=== PATIENT | female | born 1975 | race Caucasian/White ===

== ENCOUNTER 2020-08-17 13:29 | Outpatient (REF) | payer OTHER, SELFPAY | END 2020-08-17 13:30 | disposition home or self-care (01) | LOC: HO.LAB 13:29 | PROVIDERS: PCP Pediatrics; Visit Provider Internal Medicine | DX: Z20.828 Contact with and (suspected) exposure to other viral communicable diseases (principal) | CPT/HCPCS: C9803; U0003 ==

== ENCOUNTER 2024-01-17 07:33 | Emergency (ER) | payer OTHER, SELFPAY ==
--- NOTE | ~2024-01-17 | XR_ITS ---
EXAMINATION: XR CHEST CLINICAL INFORMATION: Chest tightness COMPARISON: None available. TECHNIQUE: 2 views of the chest were obtained. FINDINGS: No significant abnormality is noted involving the heart, lungs, mediastinum, bony thorax or soft tissues. Cholecystectomy clips. XR/XR chest 2V IMPRESSION: No acute cardiopulmonary disease.
[2024-01-17 07:41] VITALS: BP 138/98; PULSE 99; RESP 19; TEMP 36.6; O2SAT 99; BMI 28.2
--- NOTE | 2024-01-17 07:45 | ECG_ITS ---
Test Reason : CP Blood Pressure : / mmHG Vent. Rate : 095 BPM Atrial Rate : 095 BPM P-R Int : 134 ms QRS Dur : 080 ms QT Int : 370 ms P-R-T Axes : 055 -01 038 degrees QTc Int : 464 ms Normal sinus rhythm with sinus arrhythmia Possible Left atrial enlargement Nonspecific ST and T wave abnormality Borderline ECG No previous ECGs available Referred By: Generic ED Physician Electronically Signed By:CALDERON GONZALES
[2024-01-17 08:16] LABS: MANUAL DIFF FLAG NO
[2024-01-17 08:18] LABS: Basophils Percent Auto 0.4 % (0-2); Eosinophils Absolute Auto 0.1 X10*3/uL (0.0-0.4); Eosinophils Percent Auto 1.2 % (0-4); Hematocrit 41.6 % (37.0-47.0); Hemoglobin 13.9 g/dl (12.0-16.0); Imm Gran Abs Auto 0.03 X10*3/uL (0.00-0.03); Imm Gran Pct Auto 0.3 % (0.0-0.4); Lymphocytes Absolute Auto 1.9 X10*3/uL (1.2-4.9); Lymphocytes Percent Auto 19.6 % (20-40); Mean Corpuscular HGB Conc 33.4 g/dl (31.0-35.0); Mean Corpuscular Hemoglobin 28.9 pg (27.0-33.0); Mean Corpuscular Volume 86.5 fL (80.0-98.0); Mean Platelet Volume 11.5 fL (9.4-12.3); Monocytes Absolute Auto 0.6 X10*3/uL (0.1-1.2); Monocytes Percent Auto 6.1 % (2-11); Neutrophils Absolute Auto 7.1 x10*3/uL (2.0-8.3); Neutrophils Percent Auto 72.4 % (45-73); Platelet Count 290 X10*3/uL (160-400); Red Blood Count 4.81 X10*6/uL (4.20-5.50); Red Cell Distribution Width 12.7 % (11.0-16.0); White Blood Count 9.9 X10*3/uL (4.8-10.8)
[2024-01-17 08:19] LABS: Appearance Urine Cloudy; Color Urine Yellow; Glucose Urine UA Negative (Negative); Leukocyte Esterase Urine Trace (Negative); Nitrite Urine Negative (Negative); Specific Gravity - Urine 1.025 (1.005-1.025); UMIC TRIGGER UACC YES; Urine Blood Negative (Negative); Urine Ketones Negative (Negative); Urine Protein Negative (Neg-Trace)
--- NOTE | 2024-01-17 08:30 | ED.GENADULT ---
HPI - General Adult General Chief complaint: General Medical Stated complaint: lightheades,blurred vison ,rapid heart rate tightn Time Seen by Provider: 01/17/24 08:29 Source: patient Mode of arrival: ambulatory Limitations: no limitations History of Present Illness HPI narrative: 48 yo female with no known medical history presents to the er with complaints of feeling lightheaded, blurry vision described as feel like the corners of my vision are black since yesterday. This is noticed at rest and not worsened with movement or exertion or position changes. She had some nausea with this yesterday. Last evening laying in bed and had palpitations described as racing heart rate. Fell asleep and woke this morning with chest tightness at 6 am while in bed. Not worsened with exertion. No associated vomiting, SOB, cough, fevers, chills, diaphoresis, leg swelling or pain. No recent travel or sick contact. Related Data Allergies Allergy/AdvReac Type Severity Reaction Status Date / Time cephalexin [From KEFLEX] Allergy Unknown HIVES Verified 01/17/24 07:45 metoclopramide [From Reglan] Allergy Unknown Verified 01/17/24 07:47 Review of Systems Review of Systems: Yes all other systems are reviewed and are negative Constitutional: Constitutional: Reports no additional constitutional complaints, Denies body ache(s), Denies chills, Denies fever(s), Denies headache(s) and Denies weakness Eyes: Eyes: Reports no additional eye complaints, Reports blurry vision and Denies change in vision ENT: Reports system reviewed and no additional complaints, except as documented, Reports dizziness, Denies headache(s), Denies nasal congestion, Denies nasal discharge and Denies neck pain Cardiovascular: Cardiovascular: Reports no additional cardiovascular complaints, Reports chest pain, Denies leg edema and Denies dyspnea Respiratory: Respiratory: Reports no additional respiratory complaints, Denies cough and Denies dyspnea Gastrointestinal: Gastrointestinal: Reports no additional gastrointestinal complaints, Denies abdominal pain, Denies diarrhea, Reports nausea and Denies vomiting Genitourinary: Genitourinary: Reports no additional female genitourinary complaints and Denies urinary incontinence Musculoskeletal: Musculoskeletal: Reports no additional musculoskeletal complaints, Denies back pain, Denies arthralgias, Denies joint swelling, Denies neck pain, Denies numbness and Denies tingling Integumentary/Breasts: Skin/Breast: Reports system reviewed and no additional complaints, except as docu and Denies rash Neurologic: Reports system reviewed and no additional complaints, except as documented, Denies Abnormal speech present, Reports dizziness, Denies headache(s), Denies numbness, Denies tingling and Denies weakness PMFSH Past Medical History Attestation statement: The following information was validated with the patient. Source: old records reviewed and nursing notes reviewed Social History Social History Smoked in Last 30 Days: No Use of substances other than those prescribed or required for medical reasons: No Advance Directives: No Advance Directives Information Provided: Yes Physical Exam ED Vital Signs: Vital Signs - 24 hr 01/17/24 07:41 01/17/24 08:39 01/17/24 08:45 Temperature 98 F Pulse Rate 99 90 91 Respiratory Rate 19 Blood Pressure 138/98 H 102/73 119/79 Pulse Oximetry 99 Oxygen Delivery Method Room Air 01/17/24 08:51 01/17/24 11:00 Temperature Pulse Rate 99 82 Respiratory Rate 12 Blood Pressure 109/82 109/79 Pulse Oximetry 100 Oxygen Delivery Method Room Air BMI result Body Mass Index 28.2 Const General: cooperative, healthy appearing, comfortable and no acute distress Orientation/consciousness: patient oriented x3 Limitations: no limitations HENMT Head: Yes normal to inspection Ears: hearing grossly normal bilaterally and TM's normal bilaterally General nose exam: Normal external nose present Face and sinus: Yes normal facial exam Mouth: Normal oral and palatal mucosa present Throat: Yes posterior oropharynx normal, Yes tonsils normal and Yes uvula midline Eyes General: appearance normal, both eyes and all related structures Pupils: Equal, round and reactive pupils present Neck Neck: Yes normal visual inspection, Yes full ROM, Yes no lymphadenopathy and Yes no meningeal signs Chest Chest palpation & inspection: normal inspection of the chest Resp Effort & Inspection: normal respiratory effort Auscultation: clear to auscultation bilaterally Cardio Rate: regular rate Rhythm: regular rhythm Peripheral pulses: Peripheral pulses 2+ throughout GI Inspection: Yes normal to inspection Palpation (GI): Soft to palpation and nontender Auscultation: normal bowel sounds Back/Spine/Pelvis Thoracic/Lumbar Spine: thoracic and lumbar spine normal to inspection Skin General skin exam: no rashes or lesions noted Neuro General: patient oriented x3, moves all extremities, no meningeal signs, no focal motor deficits and normal sensation to monofilament Cranial nerves: Yes CN's II-XII intact bilaterally, Yes Equal, round and reactive pupils present, Yes Bilaterally intact EOM present, Yes Nystagmus not present, Yes Normal facial strength present and Yes Midline tongue present Cognition (Neuro): normal cognition Speech: No Abnormal speech present Gait exam (Neuro): Normal gait present Motor exam (neuro): 5/5 motor strength present throughout Sensory Exam: Normal double simultaneous stimulation for sensation Coordination: [id number] test normal, [id number] test normal and tandem gait normal Extrem General: Yes normal to inspection, Yes no pedal edema and Yes no calf tenderness Course Course Course Narrative: Patient had 2 flat troponins with nonischemic EKG with a story that is atypical for ACS. Her additional labs and imaging are unremarkable. Her D-dimer is 251. She has no risk factors for PE. She has not hypoxic, tachypneic or tachycardia with no clinical findings during for DVT and so I believe PE is less likely. Recommend patient follow-up with her primary care doctor for further management. Reviewed worrisome signs and symptoms of when to return to the emergency room. Comfortable plan for discharge home. Medical Decision Making Medical Decision Making MDM Narrative: 48 yo female with no known medical history presents to the er with complaints of feeling lightheaded, blurry vision described as feel like the corners of my vision are black since yesterday. This is noticed at rest and not worsened with movement or exertion or position changes. She had some nausea with this yesterday. Last evening laying in bed and had palpitations described as racing heart rate. Fell asleep and woke this morning with chest tightness at 6 am while in bed. Not worsened with exertion. No associated vomiting, SOB, cough, fevers, chills, diaphoresis, leg swelling or pain. No recent travel or sick contact. On exam normal neuro with no focal deficit. VSS. No leg swelling or leg pain. LS CTA Will obtain labs with trop x2, orthos, UA, EKG, CXR Differential Diagnosis Differential Diagnoses: The differential diagnosis associated with the presentation includes orthostatic hypotension, ACS, dehydration, anemia Low suspicion for PE, aortic dissection, SAH, CVA Admission/Observation Consideration of admission/observation: Escalation of care including admission/observation considered Troponin x2 is flat with nonischemic EKG, heart score 1 for age. I do not believe that patient needs admission for further management Lab Data MDM Lab Attestation statement: I reviewed the patient's lab results. 01/17/24 08:08 01/17/24 08:08 Labs: Lab Results 01/17/24 01/17/24 01/17/24 Range/Units 08:08 08:10 11:00 WBC 9.9 (4.8-10.8) X10*3/uL RBC 4.81 (4.20-5.50) X10*6/uL Hgb 13.9 (12.0-16.0) g/dl Hct 41.6 (37.0-47.0) % MCV 86.5 (80.0-98.0) fL MCH 28.9 (27.0-33.0) pg MCHC 33.4 (31.0-35.0) g/dl RDW 12.7 (11.0-16.0) % Plt Count 290 (160-400) X10*3/uL MPV 11.5 (9.4-12.3) fL Immature Gran % (Auto) 0.3 (0.0-0.4) % Neut % (Auto) 72.4 (45-73) % Lymph % (Auto) 19.6 L (20-40) % [place] % (Auto) 6.1 (2-11) % Eos % (Auto) 1.2 (0-4) % Baso % (Auto) 0.4 (0-2) % Lymph # (Auto) 1.9 (1.2-4.9) X10*3/uL [place] # (Auto) 0.6 (0.1-1.2) X10*3/uL Eos # (Auto) 0.1 (0.0-0.4) X10*3/uL Baso # (Auto) 0.0 (0.0-0.2) X10*3/uL Abs Immat Gran (auto) 0.03 (0.00-0.03) X10*3/uL Absolute Neuts (auto) 7.1 (2.0-8.3) x10*3/uL Absolute Nucleated RBC 0.000 (0.0-0.012) X10*3/uL Nucleated RBC % (auto) 0.0 (0.0-0.2) /100WBC D-Dimer High Sensitivty 251 NG/ML Sodium 141 (135-145) mmol/L Potassium 4.0 (3.3-5.1) mmol/L Chloride 108 (96-108) mmol/L Carbon Dioxide 25 (22-29) mmol/L Anion Gap 12 (12-20) BUN 9 (9-16) mg/dL Creatinine 0.67 (0.5-1.4) mg/dL Estim Creat Clear Calc 111.5 Estimated GFR > 60 Random Glucose 105 (60-115) mg/dL Calcium 9.6 (8.4-10.2) mg/dL Magnesium 1.9 (1.6-2.6) mg/dL Total Bilirubin 0.6 (0.0-1.0) mg/dL Direct Bilirubin 0.2 (0.0-0.5) mg/dL AST 17 (5-31) U/L ALT 17 (0-31) U/L Alkaline Phosphatase 94 (39-117) U/L Troponin I High Sens < 2.7 < 2.7 (<3.5-17.0) ng/L Total Protein 7.2 (6.5-8.0) g/dL Albumin 4.3 (3.5-5.0) g/dL TSH 1.11 (0.32-4.0) uIU/mL Urine Color Yellow Urine Appearance Cloudy Urine pH 6.0 (5.0-9.0) Ur Specific [place] 1.025 (1.005-1.025) Urine Protein Negative (Neg-Trace) mg/dL Urine Glucose (UA) Negative (Negative) mg/dL Urine Ketones Negative (Negative) mg/dL Urine Blood Negative (Negative) Urine Nitrite Negative (Negative) Ur Leukocyte Esterase Trace H (Negative) Urine RBC 0-2 (0-2) /HPF Urine WBC 0-5 (0-5) /HPF Ur Squamous Epith Cells 6-10 (0-2) /HPF Urine Bacteria Trace (None Seen) Hyaline Casts 0-2 (0-2) /LPF Influenza Type A (PCR) NEGATIVE (Negative) Influenza Type B (PCR) NEGATIVE (Negative) RSV RNA Qual (PCR) NEGATIVE (Negative) SARS-CoV-2 RNA (RT-PCR) NEGATIVE (Negative) Independent Interpretation I performed an independent interpretation of an: EKG and Plain X-Ray Interpretation: I independently reviewed the EKG which shows which shows normal sinus rhythm with a rate 95, normal CA, normal QRS, or QT I independently reviewed the chest x-ray and agree with the radiology report Radiology Impression Discussion of test interpretation with radiology: I have reviewed the radiologist's reading. Radiologist Impression: [id number] [place] [address] XRay Report Signed Patient: Jeff Tai MR#: [id number] : 1975 Acct:[id number] Age/Sex: 48 / F ADM Date: 01/17/24 Loc: .ED Attending Dr: Ordering Physician: Sophy Bashir DO Date of Service: 01/17/24 Procedure(s): XR chest 2V Accession Number(s): [id number] cc: Sophy Bashir DO; AYLIN ADRIAN MD~ EXAMINATION: XR CHEST CLINICAL INFORMATION: Chest tightness COMPARISON: None available. TECHNIQUE: 2 views of the chest were obtained. FINDINGS: No significant abnormality is noted involving the heart, lungs, mediastinum, bony thorax or soft tissues. Cholecystectomy clips. XR/XR chest 2V IMPRESSION: No acute cardiopulmonary disease. Tests considered The following testing was considered but not selected: See discussion in course Discharge Plan Discharge Clinical Impression: Chest tightness Patient Disposition: Home, Self-Care Instructions: Chest Pain (ED) Additional Instructions: Your lab work, EKG and chest x-ray are reassuring today. You do need to follow-up with her primary care doctor as you may need additional testing outpatient. Please return for any worsening symptoms. Referrals: Aylin Adrian MD [Primary Care Provider] - 1 week Print Language: Irish
[2024-01-17 08:34] LABS: Anion Gap 12 (12-20); Blood Urea Nitrogen 9 mg/dL (9-16); Calcium 9.6 mg/dL (8.4-10.2); Carbon Dioxide 25 mmol/L (22-29); Chloride 108 mmol/L (96-108); Creatinine Clr Calc Pharmacy 111.5; Estimated Glomerular Filt Rate > 60; Glucose Random 105 mg/dL (60-115); Magnesium 1.9 mg/dL (1.6-2.6); Sodium 141 mmol/L (135-145)
[2024-01-17 08:34] LABS: Bacteria Urine Trace (None Seen); Hyaline Casts Urine 0-2 /LPF (0-2); RBC Urine 0-2 /HPF (0-2); WBC Urine 0-5 /HPF (0-5)
[2024-01-17 08:39] VITALS: BP 102/73; PULSE 90
[2024-01-17 08:40] LABS: Troponin-I High Sensitivity < 2.7 ng/L (<3.5-17.0)
[2024-01-17 08:45] VITALS: BP 119/79; PULSE 91
[2024-01-17 08:51] VITALS: BP 109/82; PULSE 99
[2024-01-17 09:07] LABS: Alanine Aminotransferase 17 U/L (0-31); Albumin Level 4.3 g/dL (3.5-5.0); Alkaline Phosphatase 94 U/L (39-117); Aspartate Amino Transferase 17 U/L (5-31); Bilirubin Direct 0.2 mg/dL (0.0-0.5); Bilirubin Total 0.6 mg/dL (0.0-1.0); Total Protein 7.2 g/dL (6.5-8.0)
[2024-01-17 09:19] LABS: Influenza A PCR NEGATIVE (Negative); Influenza B PCR NEGATIVE (Negative); Resp Syncy Virus RNA Qual PCR NEGATIVE (Negative); SARS COV2 PCR INHOUSE NEGATIVE (Negative)
[2024-01-17 09:22] LABS: TSH reflex Free T4 1.11 uIU/mL (0.32-4.0)
[2024-01-17 11:00] VITALS: BP 109/79; PULSE 82; RESP 12; O2SAT 100
[2024-01-17 11:16] LABS: D Dimer High Sensitivity 251 NG/ML
[2024-01-17 11:45] LABS: Troponin-I High Sensitivity < 2.7 ng/L (<3.5-17.0)
[2024-01-17 12:22] VITALS: BP 115/79; PULSE 88; RESP 18; TEMP 36.9; O2SAT 97
== END 2024-01-17 12:23 | disposition home or self-care (01) ==
PROVIDERS: Nurse Practitioner Family; Emergency Provider Emergency Medicine; PCP Pediatrics
DX: R07.89 Other chest pain (principal); Z03.818 Encounter for observation for suspected exposure to other biological agents ruled out
CPT/HCPCS: 0241U; 36415; 71046; 80048; 80076; 81001; 83735; 84443; 84484; 85025; 85379; 93005; 99283; 99284

== ENCOUNTER → 2024-01-17 07:45 | Outpatient (BNV) | payer OTHER, SELFPAY | PROVIDERS: Emergency Provider Emergency Medicine; PCP Pediatrics; Visit Provider Internal Medicine | DX: I49.8 Other specified cardiac arrhythmias (principal); R07.9 Chest pain, unspecified | CPT/HCPCS: 93010 ==

== ENCOUNTER 2024-02-24 03:42 | Emergency (ER) | payer OTHER, SELFPAY ==
[2024-02-24 03:49] VITALS: BP 129/79; PULSE 91; RESP 18; TEMP 36.7; O2SAT 98; BMI 28.2
== END 2024-02-24 06:09 | disposition left against medical advice (07) ==
LOC: HO.ED 06:09
PROVIDERS: Emergency Provider Emergency Medicine; PCP Pediatrics
DX: U07.1 COVID-19 (principal); R42 Dizziness and giddiness; Z53.21 Procedure and treatment not carried out due to patient leaving prior to being seen by health care provider
CPT/HCPCS: 99281